=== PATIENT | male | born 2005 | race Caucasian/White ===

== ENCOUNTER 2023-06-08 01:03 | Emergency (ER) | payer OTHER ==
[2023-06-08 02:07] LABS: #Eosinphils 0.1 thou/uL (0.0-0.7); #Monocytes 0.8 thou/uL (0.11-0.59); #Neutrophils 8.5 thou/uL (1.40-6.50); %Basophils 0.4 % (0.0-1.0); %Eosinophils 0.5 % (0.0-10.0); %Lymphocytes 12.2 % (28.0-48.0); %Monocytes 7.7 % (0.0-4.0); %Neutrophils 78.7 % (31.0-61.0); Hematocrit 41.9 % (42.0-52.0); Hemoglobin 14.4 g/dL (14.0-18.0); Mean Corpuscular HGB CONC 34.4 g/dL (32.0-36.0); Mean Corpuscular Hemoglobin 30.8 pg (25.0-35.0); Mean Corpuscular Volume 89.5 fl (78.0-98.0); Mean Platelet Volume 8.7 fL (7.4-10.4); Platelet Count 245 10x3/uL (130-400); RBC Distribution Width 12.6 % (11.5-14.5); Red Blood Cell (RBC) Count 4.68 mill/uL (4.00-5.20); White Blood Cell (WBC) Count 10.7 10x3/uL (4.8-10.8)
[2023-06-08] MEDS ORDERED: Lidocaine 1% w/Epinephrine 1:100K 20 ML VIAL ONE (02:11)
[2023-06-08 02:29] LABS: ALT (SGPT) 52 U/L (8-55); AST (SGOT) 83 U/L (10-45); Albumin 4.7 g/dL (3.5-5.0); Alkaline Phosphatase 108 U/L (50-130); Anion Gap 17 mmol/L (10-20); BUN (Urea Nitrogen) 9 mg/dL (8.4-21.0); Bilirubin, Total 0.4 mg/dL (0.2-1.2); Calc. Creatinine Clearance 0 mL/min (70-130); Calcium 8.6 mg/dL (7.8-10.44); Carbon Dioxide 24 mmol/L (22-29); Chloride 106 mmol/L (98-107); Estimated GFR 123; Globulin 2.2 g/dL (2.4-3.5); Glucose 108 mg/dL (70-105); Potassium 3.7 mmol/L (3.5-5.1); Protein, Total 6.9 g/dL (6.0-8.3); Sodium 143 mmol/L (136-145)
[2023-06-08] MEDS ORDERED: Bacitracin 1 PK ONE (03:38)
[2023-06-08] MEDS ORDERED: Iopamidol-370 76% 500 ML MDV (1 ML CHARGE) ONE (09:42)
== END 2023-06-08 05:07 | disposition home or self-care (01) ==
LOC: ERS 01:03
DX: S01.81XA Laceration without foreign body of other part of head, initial encounter (principal); V89.2XXA Person injured in unspecified motor-vehicle accident, traffic, initial encounter
CPT/HCPCS: 12013; 70450; 71260; 72125; 74177; 80053; 85025; Q9967